=== PATIENT | male | born 1950 ===

== ENCOUNTER 2018-01-24 14:25 | Observation (INO) | payer OTHER, MEDICARE ==
[~2018-01-24] VITALS: Ht 167.6 cm; Wt 113.4 kg
[2018-01-24] MEDS ORDERED: ONDANSETRON 4 MG/2 ML VIAL IVP ONE (14:35)
[2018-01-24] MEDS ORDERED: DIPHTH/TETANUS/ACEL. PERTUSSIS IM ONE (14:35)
[2018-01-24] MEDS ORDERED: fentaNYL CITR 100 MCG/2 ML AMP IVP ONE ×2 (14:35→16:50)
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
[2018-01-24 14:54] LABS: PLATELET COUNT, AUTOMATED 258 K/uL (150-450)
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
[2018-01-24 15:04] LABS: INR 1.1
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
[2018-01-24] MEDS ORDERED: IOPAMIDOL 76% 100 ML INFUS BTL 100 ML ONE (15:29)
[2018-01-24] MEDS ORDERED: NS 0.9% 150 ML BAG 150 ML ONE (15:29)
[2018-01-24] MEDS ORDERED: EMS NS 0.9%(*) 1000 ML BAG 1,000 ML IV ONE (15:30)
[2018-01-24] MEDS ORDERED: NS(*) 0.9% 1000 ML BAG 1,000 ML IV ONE (15:30)
[2018-01-24] MEDS ORDERED: DIPH-464 PO (15:39)
[2018-01-24] MEDS ORDERED: FERR-53 PO (15:39)
[2018-01-24] MEDS ORDERED: PANT40TA65 PO (15:39)
[2018-01-24] MEDS ORDERED: GLIM4TAB50 PO (15:39)
[2018-01-24] MEDS ORDERED: METF-410 PO (15:39)
[2018-01-24] MEDS ORDERED: PRAM0.2524 PO (15:39)
[2018-01-24] MEDS ORDERED: DULO60CA7 PO (15:39)
[2018-01-24] MEDS ORDERED: LEVO75TA73 PO (15:39)
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
[2018-01-24] MEDS ORDERED: LR(*) 1000 ML BAG 1,000 ML IV PRN ×2 (17:29→20:28)
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
[2018-01-24] MEDS ORDERED: ONDANSETRON 4 MG/2 ML VIAL IVP PRN (17:30)
[2018-01-24] MEDS ORDERED: INSULIN HUM LISPRO 100 UN/ML 3 ML VIAL SUBQ PRN (17:40)
[2018-01-24] MEDS ORDERED: LEVOTHYROXINE SOD 0.075 MG TAB PO ONE (17:45)
[2018-01-24 17:59] VITALS: BP 154/85
[2018-01-24] MEDS ORDERED: fentaNYL CITR 100 MCG/2 ML AMP ONE (18:57)
[2018-01-24 19:48] VITALS: BP 127/77
[2018-01-24] MEDS: APAP/HYDROCODONE 325/5 TAB PO PRN (21:04)
[2018-01-24 23:05] VITALS: BP 123/70
[2018-01-25] MEDS: APAP/HYDROCODONE 325/5 TAB PO PRN ×2 (02:13→10:33)
[2018-01-25 02:15] VITALS: BP 114/64
[2018-01-25 05:57] LABS: PLATELET COUNT, AUTOMATED 131 K/uL (150-450)
[2018-01-25] MEDS ORDERED: LEVOTHYROXINE SOD 0.075 MG TAB PO SCH (06:00)
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
[2018-01-25 07:12] VITALS: BP 135/67
[2018-01-25] MEDS ORDERED: IOPAMIDOL 76% 75 ML INFUS BTL 0 ML ONE (07:38)
[2018-01-25 08:20] VITALS: Ht 167.6 cm; Wt 113.4 kg
[2018-01-25] MEDS ORDERED: LOR5/325 PO (08:32)
[2018-01-25] MEDS ORDERED: DOCU-416 PO (08:32)
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
[2018-01-25] MEDS ORDERED: PANTOPRAZOLE SOD 40 MG TABEC PO SCH (09:00)
[2018-01-25] MEDS ORDERED: ENOXAPARIN 40 MG/0.4ML SYR SC SCH (09:00)
[2018-01-25] MEDS ORDERED: DULoxetine HCL 30 MG CAPCR PO SCH (09:00)
== END 2018-01-25 10:45 | disposition home or self-care (01) ==
LOC: ER 14:34 → OBSVTOIN 17:12 → INTOOBSV 17:12 → MED 17:12
PROVIDERS: ADMIT Surgery; ATTEND Surgery
DX: S22.43XA Multiple fractures of ribs, bilateral, initial encounter for closed fracture (principal); S70.01XA Contusion of right hip, initial encounter; V89.2XXA Person injured in unspecified motor-vehicle accident, traffic, initial encounter; S06.0X9A Concussion with loss of consciousness of unspecified duration, initial encounter; E11.9 Type 2 diabetes mellitus without complications
CPT/HCPCS: 36415; 36416; 70450; 71045; 71260; 72125; 73502; 74177; 80320; 82948; 83690; 85025; 85610; 85730; 86850; 86900; 86901; 90471; 90715; 93005; 96361; 96374; 96375; 96376; 99285; G0378; J1650; J2405; J3010; J7030; J7120; Q9967; 82040; 82247; 82310; 82374; 82435; 82565; 82947; 84075; 84132; 84155; 84295; 84450; 84460; 84520

== ENCOUNTER → 2018-01-24 | Outpatient (CLI) | payer OTHER, MEDICARE ==
[~2018-01-24] MED LIST: DIPH-464 PO; DOCU-416 PO; DULO60CA7 PO; FERR-53 PO; GLIM4TAB50 PO; LEVO75TA73 PO; LOR5/325 PO; METF-410 PO; PANT40TA65 PO; PRAM0.2524 PO
[2018-01-25 08:20] VITALS: BMI 40.4
== END ==
LOC: AMB 12:48
PROVIDERS: ATTEND Nurse Practitioner
DX: M25.551 Pain in right hip (principal); S00.01XA Abrasion of scalp, initial encounter; V58.5XXA Driver of pick-up truck or van injured in noncollision transport accident in traffic accident, initial encounter; Y92.411 Interstate highway as the place of occurrence of the external cause; Y93.9 Activity, unspecified; Y99.9 Unspecified external cause status
CPT/HCPCS: A0425; A0427